=== PATIENT | female | born 1990 | race Caucasian/White ===

== ENCOUNTER 2016-11-06 17:59 | Emergency (ER) | payer MEDICAID ==
--- NOTE | 2016-11-06 21:13 | Emergency Department Report ---
ED Extremity Problem HPI - General Chief complaint: Extremity Injury, Lower Stated complaint: LEFT SIDE FOOT MUSCLE PAIN Time Seen by Provider: 11/06/16 21:10 Source: patient Mode of arrival: Ambulatory Limitations: No Limitations - History of Present Illness Initial comments: 26 y/o F presents with left lateral sided foot pain for the past 3 days. Pt states that she works for [employer] and works about 10 miles a day. Pt denies any medical hx of blood clots, chest pain, SOB, long travels, fever, or chills. Pt has been taking OTC mediations with no relief. pt states that the pain increases with movement and has no pain with no movement. Pt denies any trauma to the site. She reports to pain and swelling at the lateral aspect of the foot near the 5th metatarsal. Pt denies taking any other medications for any conditions at this time and is otherwise healthy. NKDA. [place] Complaint: extremity pain, extremity swelling -: days(s) (3) Location: left, lower extremity -: Yes arthralgia, No fever, No associated dyspnea, No associated chest pain Radiation: none Severity scale (0 -10): 8 Quality: sharp Consistency: intermittent Improves with: immobilization Worsens with: weight bearing, walking, exertion Associated Symptoms: myalgias, arthralgias. denies: chest pain, shortness of breath, fever, rash - Related Data Previous Rx's Medication Instructions Recorded Last Taken Type Acetaminophen [Acetaminophen ER 650 mg PO Q8HR PRN #25 tablet.er 08/29/15 Unknown Rx TAB] Cyclobenzaprine HCl [Flexeril 5 MG 5 mg PO TID PRN #15 tablet 11/06/16 Unknown Rx TAB] Ibuprofen [Motrin 800 MG tab] 800 mg PO Q8HR PRN #15 tablet 11/06/16 Unknown Rx Allergies Allergy/AdvReac Type Severity Reaction Status Date / Time No Known Allergies Allergy Verified 09/06/15 09:38 ED Review of Systems ROS: Stated complaint: LEFT SIDE FOOT MUSCLE PAIN Other details as noted in HPI Constitutional: denies: chills, fever Eyes: denies: eye pain, eye discharge, vision change ENT: denies: ear pain, throat pain Respiratory: denies: cough, shortness of breath, wheezing Cardiovascular: denies: chest pain, palpitations Endocrine: no symptoms reported Gastrointestinal: denies: abdominal pain, nausea, diarrhea Genitourinary: denies: urgency, dysuria, discharge Musculoskeletal: joint swelling, arthralgia, myalgia. denies: back pain Skin: denies: rash, lesions Neurological: denies: headache, weakness, paresthesias Psychiatric: denies: anxiety, depression Hematological/Lymphatic: denies: easy bleeding, easy bruising ED Past Medical Hx - Past Medical History Previous Medical History?: No Hx Hypertension: No Hx Heart Attack/AMI: No Hx Diabetes: No Hx Deep Vein Thrombosis: No Hx Pulmonary Embolism: No Hx Liver Disease: No Hx Renal Disease: No Hx Sickle Cell Disease: No Hx Headaches / Migraines: No Hx Seizures: No Hx Asthma: No Hx COPD: No Hx Tuberculosis: No Hx HIV: No - Surgical History Past Surgical History?: No - Social History Smoking Status: Never Smoker Substance Use Type: None - Medications Home Medications: Home Medications Medication Instructions Recorded Confirmed Last Taken Type Acetaminophen [Acetaminophen ER 650 mg PO Q8HR PRN #25 tablet.er 08/29/15 Unknown Rx TAB] Cyclobenzaprine HCl [Flexeril 5 MG 5 mg PO TID PRN #15 tablet 11/06/16 Unknown Rx TAB] Ibuprofen [Motrin 800 MG tab] 800 mg PO Q8HR PRN #15 tablet 11/06/16 Unknown Rx ED Physical Exam - General Limitations: No Limitations General appearance: alert, in no apparent distress - Head Head exam: Present: atraumatic, normocephalic - Eye Eye exam: Present: normal appearance - ENT ENT exam: Present: mucous membranes moist - Neck Neck exam: Present: normal inspection - Respiratory Respiratory exam: Present: normal lung sounds bilaterally. Absent: respiratory distress - Cardiovascular Cardiovascular Exam: Present: regular rate, normal rhythm. Absent: systolic murmur, diastolic murmur, rubs, gallop - GI/Abdominal GI/Abdominal exam: Present: soft, normal bowel sounds - Extremities Exam Extremities exam: Present: full ROM (increased pain with flexion and upon palpation of the lateral aspect of the L foot, full ROM of the joint, able to wriggle toes, pulses full, sensation intact, pt is hemodynamically and neurovascularly intact), tenderness (tenderness and mild swelling at the fifth metatarsal region, mild swelling), joint swelling. Absent: calf tenderness - Back Exam Back exam: Present: normal inspection - Neurological Exam Neurological exam: Present: alert, oriented X3 - Psychiatric Psychiatric exam: Present: normal affect, normal mood - Skin Skin exam: Present: warm, intact, normal color ED Course Vital Signs 11/06/16 11/06/16 11/06/16 18:48 20:58 23:34 Temperature 99.4 F 98.8 F 98.6 F Pulse Rate 76 72 73 Respiratory 20 18 16 Rate Blood Pressure 95/57 Blood Pressure 98/57 97/69 [Left] O2 Sat by Pulse 100 100 99 Oximetry ED Medical Decision Making - Medical Decision Making 26 y/o F presented with 5th metatarsal area pain, because of patient's high risk of stress fracture given the amount of walking she does I have conducted an Xray at this time- negative study. Pt denies any known injury to the site. I have offered her pain medications here at the ED, patient denied. I have given patient an chuckie wrap, flexeril, and ibuprofen PRN for the pain at home. Encouraged the RICE therapy. According to PERC criteria, pt was very low risk for DVT/clot, therefore, no vascualr studies were conducted- spoke with Dr. Buitrago about this case. Pt was discharged in stable condition here, no signs of resp distress, patient is alert and oriented at the ED. Critical care attestation.: If time is entered above; I have spent that time in minutes in the direct care of this critically ill patient, excluding procedure time. ED Disposition Clinical Impression: Muscle strain, Foot pain, left Disposition: DC-01 TO HOME OR SELFCARE Is pt being admited?: No Does the pt Need Aspirin: No Condition: Stable Instructions: Muscle Strain (ED), RICE Therapy (ED) Additional Instructions: Please take the medications given to you today as needed for the pain. Be aware that muscle relaxant may make you drowsy, take at night, do not drive or work with this medication. RICE= rest, ice, compress, and elevate the joint. Foot brace given to you today. Please follow-up with PCP 3-5 days, if progressing symptoms go to see the orthopedist. Any acute worsening such as: increased redness, swelling, numbness, tingling return to the ER. Prescriptions: Cyclobenzaprine HCl [Flexeril 5 MG TAB] 5 mg PO TID PRN #15 tablet PRN Reason: muscle relaxant Ibuprofen [Motrin 800 MG tab] 800 mg PO Q8HR PRN #15 tablet PRN Reason: Pain Referrals: [facility] [Outside] - 3-5 Days [facility] [Outside] - 3-5 Days PRIMARY CAREMD [Primary Care Provider] - 3-5 Days JARED WILKINS MD [Staff Physician] - 3-5 Days Forms: Work/School Release Form(ED)
--- NOTE | 2016-11-06 23:08 | XRay Report ---
FINAL REPORT PROCEDURE: XR FOOT 2V LT TECHNIQUE: Left foot, three views HISTORY: pain in foot COMPARISON: No prior studies are available for comparison. FINDINGS: No acute fracture or dislocation is seen. No focal osseous lesion is identified. No radiopaque foreign body is seen. IMPRESSION: No acute fracture or dislocation is identified
[2016-11-06 23:35] VITALS: BP 97/69
== END 2016-11-06 23:34 | disposition home or self-care (01) ==
LOC: ED 17:59
DX: S96.912A Strain of unspecified muscle and tendon at ankle and foot level, left foot, initial encounter (principal); X58.XXXA Exposure to other specified factors, initial encounter; Y93.89 Activity, other specified; Y99.9 Unspecified external cause status; Y92.89 Other specified places as the place of occurrence of the external cause

== ENCOUNTER 2018-10-05 11:24 | Emergency (ER) | payer OTHER ==
[2018-10-05 12:13] VITALS: BP 93/53
--- NOTE | 2018-10-05 12:15 | Event Note ---
ED Screening Note Date of service: 10/05/18 Time: 12:11 ED Screening Note: 28 y/o female comes in for abd pain and back pain. LMP 08/11/18 . No vaginal bleeding. Has no care. This initial assessment/diagnostic orders/clinical plan/treatment(s) is/are subject to change based on patients health status, clinical progression and re- assessment by fellow clinical providers in the ED. Further treatment and workup at subsequent clinical providers discretion. Patient/guardian urged not to elope from the ED as their condition may be serious if not clinically assessed and managed. Initial orders include:
[2018-10-05 12:48] LABS: Bilirubin,Urine NEG (Negative); Color,Urine Yellow (Yellow)
[2018-10-05 12:49] LABS: Blood,Urine NEG (Negative); Protein,Urine <15 mg/dL mg/dL (Negative); Urobilinogen,Urine < 2.0 mg/dL (<2.0); WBC,Urine < 1.0 /HPF (0.0-6.0)
--- NOTE | 2018-10-05 13:03 | Emergency Department Report ---
HPI - General Chief Complaint: Abdominal Pain Time Seen by Provider: 10/05/18 12:11 ED Past Medical Hx - Past Medical History Previous Medical History?: Yes Hx Hypertension: No Hx Heart Attack/AMI: No Hx Diabetes: No Hx Deep Vein Thrombosis: No Hx Pulmonary Embolism: No Hx Liver Disease: No Hx Renal Disease: No Hx Sickle Cell Disease: No Hx Headaches / Migraines: No Hx Seizures: No Hx Asthma: No Hx COPD: No Hx Tuberculosis: No Hx HIV: No Additional medical history: sickle cell trait - Surgical History Past Surgical History?: No - Social History Smoking Status: Never Smoker Substance Use Type: None - Medications Home Medications: Home Medications Medication Instructions Recorded Confirmed Last Taken Type Acetaminophen [Acetaminophen ER 650 mg PO Q8HR PRN #25 tablet.er 08/29/15 09/06/15 Unknown Rx TAB] Cyclobenzaprine HCl [Flexeril 5 MG 5 mg PO TID PRN #15 tablet 11/06/16 Unknown Rx TAB] Ibuprofen [Motrin 800 MG tab] 800 mg PO Q8HR PRN #15 tablet 11/06/16 Unknown Rx ED Review of Systems ROS: Stated complaint: 9 WKS /BLEEDING/PAIN Other details as noted in HPI Physical Exam - Physical Exam Vital Signs: Vital Signs 10/05/18 12:09 Temperature 97.8 F Pulse Rate 90 Respiratory 16 Rate Blood Pressure 93/53 O2 Sat by Pulse 100 Oximetry ED Course Vital Signs 10/05/18 12:09 Temperature 97.8 F Pulse Rate 90 Respiratory 16 Rate Blood Pressure 93/53 O2 Sat by Pulse 100 Oximetry Critical care attestation.: If time is entered above; I have spent that time in minutes in the direct care of this critically ill patient, excluding procedure time. ED Disposition Clinical Impression: Disposition: DC-01 TO HOME OR SELFCARE Is pt being admited?: No Does the pt Need Aspirin: No Condition: Stable Instructions: (ED) Additional Instructions: pelvic rest until seen by quoter continue vitamin no drugs/alcohol or cig tylenol for pain diet and activity as tolerated Referrals: ARABELLA SAINZ [Other] - 3-5 Days ADRIANA SHAIKH MD [Staff Physician] - 3-5 Days Time of Disposition: 14:00
--- NOTE | 2018-10-05 13:55 | Ultrasound Report ---
ULTRASOUND OB <=14 WEEKS FETUS ULTRASOUND OB TRANSVAGINAL HISTORY: Patient reports a 9 week with abdominal and back pain COMPARISON: None. TECHNIQUE: Routine transabdominal and transvaginal OB ultrasound performed. FINDINGS: Uterus: Mildly enlarged measuring 11.2 x 10.1 x 10.1 cm. Gestational Sac: Well-defined oval shape and intrauterine in location. Yolk Sac: Normal in appearance. Fetus/Embryo: [place]-rump length of 1.9 cm, corresponding to an estimated gestational age of 8 weeks 3 days. Embryonic/ anatomy is too small for evaluation. Embryonic/ cardiac activity: 178bpm Placenta: Too small for evaluation. Amniotic fluid volume: Subjectively appropriate for gestational age. Ovaries: The right ovary is normal in size and appearance with normal blood flow, measuring 2.7 x 0. 8 x 3.5 cm. The left ovary is normal in size and appearance with normal blood flow, measuring 4.2 x 2.3 x 2.7 cm. Hypoechoic space-occupying mass in the left ovary with peripheral vascularity is most likely the corpus luteum. Additional findings: None. IMPRESSION Early live intrauterine . No acute abnormality is appreciated. Signer Name: Emiliano Barragan Jr, MD Signed: 10/05/2018 1:51 PM Workstation Name: [id number]
== END 2018-10-05 14:10 | disposition home or self-care (01) ==
LOC: ED 11:24
DX: O26.891 Other specified pregnancy related conditions, first trimester (principal); O99.011 Anemia complicating pregnancy, first trimester; D57.3 Sickle-cell trait; Z3A.08 8 weeks gestation of pregnancy; Z79.899 Other long term (current) drug therapy
CPT/HCPCS: 36415; 76801; 76817; 81001; 84702

== ENCOUNTER 2018-10-15 07:21 | Emergency (ER) | payer OTHER ==
[2018-10-15 07:45] LABS: Basophils % (Auto) 0.4 % (0.0-1.8); Eosinophils # (Auto) 0.1 K/mm3 (0.0-0.4); Eosinophils % (Auto) 1.5 % (0.0-4.3); Hematocrit 33.3 % (30.3-42.9); Hemoglobin 11.3 gm/dl (10.1-14.3); Lymphocytes # (Auto) 1.8 K/mm3 (1.2-5.4); Lymphocytes % (Auto) 32.9 % (13.4-35.0); Mean Corpuscular HGB Conc 34 % (30-34); Mean Corpuscular Volume 84 fl (79-97); Monocytes # (Auto) 0.4 K/mm3 (0.0-0.8); Monocytes % (Auto) 6.8 % (0.0-7.3); Platelet Count 259 K/mm3 (140-440); Red Blood Count 3.98 M/mm3 (3.65-5.03); Red Cell Distribution Width 14.5 % (13.2-15.2)
[2018-10-15 07:56] LABS: Bilirubin,Urine NEG (Negative); Blood,Urine MOD (Negative); Color,Urine Yellow (Yellow); Protein,Urine <15 mg/dL mg/dL (Negative); Urobilinogen,Urine < 2.0 mg/dL (<2.0)
--- NOTE | 2018-10-15 08:54 | Emergency Department Report ---
ED Female HPI - General Chief complaint: Vaginal Bleeding Stated complaint: 10 WKS /BLEEDING/PAIN Time Seen by Provider: 10/15/18 08:04 Source: patient Mode of arrival: Ambulatory Limitations: No Limitations - History of Present Illness Initial comments: 28-year-old [place] female . This emergency department complaining of painless vaginal spotting which started this morning 5:20 PM she was seen here on October 05 had an ultrasound which showed a IUP of 8 weeks and 3 days. Heart rate of 178 with a Quant of 140,000. Complaint: other -: Gradual Radiation: non-radiating Severity: mild Quality: aching Consistency: constant Improves with: none Worsens with: none Are you Now?: No Associated Symptoms: vaginal bleeding. denies: abdominal pain, nausea/vomiting, fever/chills, headaches, rash, shortness of breath, syncope, weakness - Related Data Sexually active: No Previous Rx's Medication Instructions Recorded Last Taken Type Acetaminophen [Acetaminophen ER 650 mg PO Q8HR PRN #25 tablet.er 08/29/15 Unknown Rx TAB] Cyclobenzaprine HCl [Flexeril 5 MG 5 mg PO TID PRN #15 tablet 11/06/16 Unknown Rx TAB] Ibuprofen [Motrin 800 MG tab] 800 mg PO Q8HR PRN #15 tablet 11/06/16 Unknown Rx Allergies Allergy/AdvReac Type Severity Reaction Status Date / Time No Known Allergies Allergy Verified 09/06/15 09:38 ED Review of Systems ROS: Stated complaint: 10 WKS /BLEEDING/PAIN Other details as noted in HPI Comment: All other systems reviewed and negative ED Past Medical Hx - Past Medical History Previous Medical History?: Yes Hx Hypertension: No Hx Heart Attack/AMI: No Hx Diabetes: No Hx Deep Vein Thrombosis: No Hx Pulmonary Embolism: No Hx Liver Disease: No Hx Renal Disease: No Hx Sickle Cell Disease: No Hx Headaches / Migraines: No Hx Seizures: No Hx Asthma: No Hx COPD: No Hx Tuberculosis: No Hx HIV: No Additional medical history: sickle cell trait, miscarriage - Surgical History Past Surgical History?: No - Social History Smoking Status: Never Smoker Substance Use Type: None - Medications Home Medications: Home Medications Medication Instructions Recorded Confirmed Last Taken Type Acetaminophen [Acetaminophen ER 650 mg PO Q8HR PRN #25 tablet.er 08/29/15 09/06/15 Unknown Rx TAB] Cyclobenzaprine HCl [Flexeril 5 MG 5 mg PO TID PRN #15 tablet 11/06/16 Unknown Rx TAB] Ibuprofen [Motrin 800 MG tab] 800 mg PO Q8HR PRN #15 tablet 11/06/16 Unknown Rx ED Physical Exam - General Limitations: No Limitations General appearance: alert, in no apparent distress - Head Head exam: Present: atraumatic, normocephalic - Eye Eye exam: Present: normal appearance, PERRL, EOMI. Absent: scleral icterus, conjunctival injection, periorbital swelling, periorbital tenderness Pupils: Present: normal accommodation. Absent: unequal - ENT ENT exam: Present: mucous membranes moist. Absent: TM's normal bilaterally, normal external ear exam - Neck Neck exam: Present: normal inspection, full ROM. Absent: tenderness, meningismus, thyromegaly - Respiratory Respiratory exam: Present: normal lung sounds bilaterally. Absent: respiratory distress, wheezes, rales, chest wall tenderness, accessory muscle use - Cardiovascular Cardiovascular Exam: Present: regular rate, normal rhythm. Absent: systolic murmur, diastolic murmur, rubs, gallop - GI/Abdominal GI/Abdominal exam: Present: soft, normal bowel sounds - Extremities Exam Extremities exam: Present: normal inspection - Back Exam Back exam: Present: normal inspection - Neurological Exam Neurological exam: Present: alert, oriented X3 - Psychiatric Psychiatric exam: Present: normal affect, normal mood - Skin Skin exam: Present: warm, dry, intact, normal color. Absent: rash ED Course Vital Signs 10/15/18 07:24 Temperature 98.3 F Pulse Rate 91 H Blood Pressure 129/75 O2 Sat by Pulse 100 Oximetry ED Medical Decision Making - Lab Data Result diagrams: 10/15/18 07:34 - Radiology Data Radiology results: report reviewed (pelvic ultrasound comparison to 10/05/2018, did reveal early live intrauterine , no acute abnormalities detected. 9 weeks 5 days with cardiac activity 177 bpm.) - Medical Decision Making [id number] [place] female, first trimester of not yet seen her [facility]ER for her general care having some spotting Critical care attestation.: If time is entered above; I have spent that time in minutes in the direct care of this critically ill patient, excluding procedure time. ED Disposition Clinical Impression: Vaginal bleeding in Disposition: DC-01 TO HOME OR SELFCARE Is pt being admited?: No Does the pt Need Aspirin: No Condition: Stable Instructions: (ED), Threatened Miscarriage (ED) Additional Instructions: Please continue taking your vitamins and continue to hydrate as well as as we discussed incorporating the appropriate anti-nausea regimen as well and be sure to follow up with your [facility] for management Referrals: [facility] [Provider Group] - 3-5 Days
--- NOTE | 2018-10-15 10:38 | Ultrasound Report ---
ULTRASOUND OB LESS THAN EQUAL TO 14 WEEKS FETUS ULTRASOUND OB TRANSVAGINAL HISTORY: Vaginal bleeding during COMPARISON: 10/05/2018 TECHNIQUE: Routine transabdominal OB ultrasound performed. FINDINGS: Uterus: Mildly enlarged measuring 13.1 x 8.8 x 10.5 cm. Gestational Sac: Well-defined oval shape and intrauterine in location. Yolk Sac: Normal in appearance. Fetus/Embryo: [place]-rump length of 2.9 cm, corresponding to an estimated gestational age of 9 weeks 5 days. Embryonic/ anatomy is too small for evaluation. Embryonic/ cardiac activity: 177bpm Placenta: Too small for evaluation. Amniotic fluid volume: Subjectively appropriate for gestational age. Ovaries: The right ovary is normal in size and appearance with normal blood flow, measuring 2.2 x 1. 3 x 3.6 cm. The left ovary is normal in size and appearance with normal blood flow, measuring 3.5 x 1.9 x 3.0 cm. A 1.4 cm simple cyst in the left ovary is unchanged. Additional findings: None. IMPRESSION Early live intrauterine . No acute abnormality is detected. Signer Name: Emiliano Barragan Jr, MD Signed: 10/15/2018 10:34 AM Workstation Name: [id number]
[2018-10-15 11:34] VITALS: BP 93/61
== END 2018-10-15 12:01 | disposition home or self-care (01) ==
LOC: ED 07:21
DX: O20.9 Hemorrhage in early pregnancy, unspecified (principal); O26.851 Spotting complicating pregnancy, first trimester; Z3A.10 10 weeks gestation of pregnancy
CPT/HCPCS: 36415; 76801; 76817; 81001; 84702; 85025; 86900; 86901; 99284

== ENCOUNTER 2019-03-29 11:58 | Outpatient (CLI) | payer OTHER ==
[2019-03-29] MEDS ORDERED: metroNIDAZOLE 500 MG TAB PO ONE (12:20)
[2019-03-29] MEDS ORDERED: AMPICILLIN/NS 2 GM/100 ML 2 GM/100 ML BAG IV ONE (12:21)
[2019-03-29] MEDS ORDERED: LACTATED RINGERS 1,000 ML IV SCH (13:00)
[2019-03-29 14:03] LABS: Basophils % (Auto) 0.5 % (0.0-1.8); Eosinophils # (Auto) 0.2 K/mm3 (0.0-0.4); Eosinophils % (Auto) 3.4 % (0.0-4.3); Hematocrit 42.6 % (30.3-42.9); Hemoglobin 13.7 gm/dl (10.1-14.3); Lymphocytes # (Auto) 1.1 K/mm3 (1.2-5.4); Lymphocytes % (Auto) 19.4 % (13.4-35.0); Mean Corpuscular HGB Conc 32 % (30-34); Mean Corpuscular Volume 71 fl (79-97); Monocytes # (Auto) 0.3 K/mm3 (0.0-0.8); Monocytes % (Auto) 6.3 % (0.0-7.3); Platelet Count 128 K/mm3 (140-440); Red Cell Distribution Width 17.3 % (13.2-15.2)
[2019-03-29] MEDS ORDERED: MAGNESIUM SULFATE 4 GM/100 ML BAG IV ONE (14:13)
[2019-03-29] MEDS: BETAMET ACET/BETAMET NA PH 6 MG/ML INJ 5 ML MDV IM SCH (14:24)
[2019-03-29] MEDS: FERROUS SULFATE 325 MG TAB PO SCH (14:25)
--- NOTE | 2019-03-29 14:27 | History and Physical Report ---
History of Present Illness Date of examination: 03/29/19 History of present illness: PT with h/o 3 PTDs. PT is at 32.6 weeks today. PT seen in office and notes ctxs over the weekend and still having them today. The ctxs are uncomfortable when she has them. No VB. No LOF. She also notes decreased FM for around a w [place]. Pt notes that she was on Debbie but stopped @ 28 weeks due to a skin reaction to the shot. Pt was 3 cm dilated in the office today and CNM notes a cervical polyp on her exam. Past History Past Medical History: other (anemia) Past Surgical History: no surgical history - Obstetrical History Expected Date of Delivery: 05/18/19 Actual Gestation: 32 Week(s) 6 Day(s) : 7 Hx # Term Pregnancies: 2 Number of Pregnancies: 3 Spontaneous Abortions: 1 Number of Living Children: 5 Medications and Allergies Allergies Allergy/AdvReac Type Severity Reaction Status Date / Time No Known Allergies Allergy Verified 09/06/15 09:38 Home Medications Medication Instructions Recorded Confirmed Last Taken Type Acetaminophen [Acetaminophen ER 650 mg PO Q8HR PRN #25 tablet.er 08/29/15 09/06/15 Unknown Rx TAB] Cyclobenzaprine HCl [Flexeril 5 MG 5 mg PO TID PRN #15 tablet 11/06/16 Unknown Rx TAB] Ibuprofen [Motrin 800 MG tab] 800 mg PO Q8HR PRN #15 tablet 11/06/16 Unknown Rx Active Meds: Active Medications Betamethasone Acet/Betameth SodPhos (Celestone Soluspan) 12 mg IM Q24HR KISHA Ferrous Sulfate (Feosol) 325 mg PO TID KISHA Lactated Ringer's (Lactated Ringers) 1,000 mls @ 125 mls/hr IV DIRECT KISHA Ampicillin Sodium (Ampicillin/Ns 1 Gm/50 Ml) 1 gm in 50 mls @ 100 mls/hr IV Q4HR KISHA; Protocol Magnesium Sulfate (Magnesium Sulfate 40gm/1000ml) 40 gm in 1,000 mls @ 50 mls/hr IV DIRECT KISHA Magnesium Sulfate (Magnesium Sulfate 4gm/100ml) 4 gm in 100 mls @ 300 mls/hr IV ONCE ONE Stop: 03/29/19 14:32 Multivitamins/Iron/Calcium ( Vitamin) 1 each PO QDAY KISHA Review of Systems All systems: negative (except HPI) - Physical Exam Abdomen: Positive: normal appearance (No acute distress but is visibly breathing through her contractions.), soft. Negative: tenderness - Obstetrical FHR: category 1 Uterine Contraction Frequency (min): around q 5-7 min Results Result Diagrams: 03/29/19 13:26 Abnormal lab results 03/29/19 Range/Units 13:26 RBC 6.00 H (3.65-5.03) M/mm3 MCV 71 L (79-97) fl MCH 23 L (28-32) pg RDW 17.3 H (13.2-15.2) % Plt Count 128 L (140-440) K/mm3 Lymph # 1.1 L (1.2-5.4) K/mm3 Seg Neutrophils % 70.4 H (40.0-70.0) % All other labs normal. Assessment and Plan - Patient Problems (1) Premature cervical dilation in third trimester Current Visit: Yes Status: Acute Plan to address problem: Will check BPP for her decreased FM. Start IVF and Betamethasone. Also start MgSO4 for 24 hrs. FFN also ordered. Check GBS status. Case d/w pt and she agrees with plan. All questions answered.
[2019-03-29] MEDS: PRENATAL VIT27-FE FUMARATE-FOLIC ACID VIT TAB PO SCH (14:35)
[2019-03-29] MEDS ORDERED: MAGNESIUM SULFATE 40GM/1000ML 40 GM/1,000 ML BAG IV SCH (15:00)
[2019-03-29] MEDS ORDERED: AMPICILLIN/NS 1 GM/50 ML 1 GM/50 ML BAG IV SCH (16:00)
--- NOTE | 2019-03-29 16:20 | Ultrasound Report ---
Limited OB Ultrasound Biophysical profile HISTORY: well-being. TECHNIQUE: Grayscale and color Doppler imaging performed. COMPARISON: OB ultrasound from 10/15/2018 FINDINGS: There is a single viable intrauterine gestation with cephalic presentation and MIQUEL of 13 cm which is normal. Placenta is positioned along the fundal aspect of the uterus. Cervical length is 3. 7 cm. Heart rate is 153 bpm. Overall EGA is 32 weeks and 0 days by ultrasound which closely correlates with the clinical age of 32 weeks and 6 days. Estimated delivery date is 05/24/2019. weight is 1905 g. Limited anatomic jigar vey beyond the neuroanatomy (which was not well-seen) is unremarkable. IMPRESSION: Single viable intrauterine gestation as above. Signer Name: Horacio Can MD Signed: 03/29/2019 4:16 PM Workstation Name: [id number]
[2019-03-29] MEDS ORDERED: TERBUTALINE 1 MG/1 ML INJ SUB-Q ONE (16:39)
[2019-03-29] MEDS ORDERED: TERBUTALINE 1 MG/1 ML INJ ONE (16:40)
[2019-03-29] MEDS: AMPICILLIN/NS 1 GM/50 ML 1 GM/50 ML BAG IV SCH ×2 (18:27→23:00)
[2019-03-30] MEDS: AMPICILLIN/NS 1 GM/50 ML 1 GM/50 ML BAG IV SCH (02:55)
[2019-03-30] MEDS: FERROUS SULFATE 325 MG TAB PO SCH ×2 (09:14→14:32)
[2019-03-30] MEDS: PRENATAL VIT27-FE FUMARATE-FOLIC ACID VIT TAB PO SCH (09:40)
[2019-03-30] MEDS ORDERED: BETAMET ACET/BETAMET NA PH 6 MG/ML INJ 5 ML MDV IM ONE (10:00)
[2019-03-30] MEDS: BETAMET ACET/BETAMET NA PH 6 MG/ML INJ 5 ML MDV IM SCH (14:29)
--- NOTE | 2019-03-30 17:12 | Progress Note ---
Assessment and Plan - Patient Problems (1) Premature cervical dilation in third trimester Current Visit: Yes Status: Acute Plan to address problem: Pt got betamethsone #2 this afternoon. Although her ctxs have spaced out and FFN is negative, will observe until tomorrow in light of her PTD hx, her advance cervical dilation and her grand multiparity. MgSO4 is off and pt switched to prn Nifedipine. If pt is doing well with this regimen, can consider sending pt home tomorrow with the same Nifedipine. Abx stopped but pt aware that if she goes into labor, she will need it again. GBS cx is pending. Subjective - Subjective Date of service: 03/30/19 (Late entry- PT seen this morning around 9am) Interval history: PT's exam in the office early yesterday was 3 cm by CNM. In the late afternoon yesterday, pt had ctxs upto q 2 min and RN noted she was 4-5 cm. Terb x 1 given along with the Mag that she is on. Ctxs soon after quieted down and pt no long er with regular ctxs. FFN was negative yesterday as well. No VB or LOF. No other complaints except she does not like the Ampicillin. She feels uncomfortable while receiving it (no CP/SOB) and feels better after the tx is completed. Objective - Vital Signs Vital Signs: Vital Signs - 12hr 03/30/19 03/30/19 03/30/19 05:11 05:16 05:21 Temperature Pulse Rate 99 H 87 91 H Respiratory Rate Blood Pressure O2 Sat by Pulse 99 99 98 Oximetry 03/30/19 03/30/19 03/30/19 05:26 05:31 05:36 Temperature Pulse Rate 94 H 96 H 94 H Respiratory Rate Blood Pressure O2 Sat by Pulse 100 98 100 Oximetry 03/30/19 03/30/19 03/30/19 05:41 05:46 05:51 Temperature Pulse Rate 90 87 98 H Respiratory Rate Blood Pressure O2 Sat by Pulse 98 98 99 Oximetry 03/30/19 03/30/19 03/30/19 05:52 05:59 06:04 Temperature Pulse Rate 90 74 96 H Respiratory Rate Blood Pressure 78/45 O2 Sat by Pulse 98 100 Oximetry 03/30/19 03/30/19 03/30/19 06:09 06:14 06:15 Temperature Pulse Rate 102 H 99 H 86 Respiratory Rate Blood Pressure 100/59 O2 Sat by Pulse 100 99 Oximetry 03/30/19 03/30/19 03/30/19 06:19 06:24 06:29 Temperature Pulse Rate 100 H 91 H 100 H Respiratory Rate Blood Pressure O2 Sat by Pulse 99 100 100 Oximetry 03/30/19 03/30/19 03/30/19 06:43 06:48 06:53 Temperature Pulse Rate 100 H 92 H 101 H Respiratory Rate Blood Pressure O2 Sat by Pulse 96 100 99 Oximetry 03/30/19 03/30/19 03/30/19 06:58 07:03 07:08 Temperature Pulse Rate 94 H 113 H 86 Respiratory Rate Blood Pressure O2 Sat by Pulse 99 100 100 Oximetry 03/30/19 03/30/19 03/30/19 07:13 07:27 07:32 Temperature Pulse Rate 98 H 121 H 103 H Respiratory Rate Blood Pressure O2 Sat by Pulse 99 98 99 Oximetry 03/30/19 03/30/19 03/30/19 07:37 07:42 07:47 Temperature Pulse Rate 94 H 84 86 Respiratory Rate Blood Pressure O2 Sat by Pulse 98 99 99 Oximetry 03/30/19 03/30/19 03/30/19 07:52 07:57 08:00 Temperature 97.4 F L Pulse Rate 86 116 H Respiratory 19 Rate Blood Pressure O2 Sat by Pulse 99 99 Oximetry 03/30/19 03/30/19 03/30/19 08:02 08:06 10:07 Temperature Pulse Rate 98 H 102 H 115 H Respiratory Rate Blood Pressure 89/53 99/60 O2 Sat by Pulse 99 Oximetry 03/30/19 03/30/19 03/30/19 11:06 12:02 12:06 Temperature 97.6 F Pulse Rate 104 H 99 H Respiratory 16 Rate Blood Pressure 93/53 101/58 O2 Sat by Pulse Oximetry 03/30/19 03/30/19 03/30/19 14:51 14:53 14:56 Temperature Pulse Rate 104 H 99 H 114 H Respiratory Rate Blood Pressure 91/59 O2 Sat by Pulse 100 100 Oximetry 03/30/19 03/30/19 03/30/19 15:01 15:06 15:11 Temperature Pulse Rate 103 H 97 H 97 H Respiratory Rate Blood Pressure O2 Sat by Pulse 100 100 100 Oximetry 01/03/30/19 03/30/19 15:16 15:21 15:23 Temperature Pulse Rate 95 H 115 H Respiratory Rate Blood Pressure O2 Sat by Pulse 100 100 91 Oximetry 03/30/19 03/30/19 03/30/19 15:26 15:31 15:36 Temperature Pulse Rate 111 H 101 H 99 H Respiratory Rate Blood Pressure O2 Sat by Pulse 92 100 100 Oximetry 03/30/19 03/30/19 03/30/19 15:41 15:46 15:51 Temperature Pulse Rate 95 H 112 H 94 H Respiratory Rate Blood Pressure O2 Sat by Pulse 100 100 98 Oximetry 03/30/19 03/30/19 03/30/19 15:56 16:01 16:06 Temperature Pulse Rate 106 H 104 H 94 H Respiratory Rate Blood Pressure O2 Sat by Pulse 99 98 99 Oximetry 03/30/19 03/30/19 03/30/19 16:11 16:16 16:21 Temperature Pulse Rate 88 90 98 H Respiratory Rate Blood Pressure O2 Sat by Pulse 98 97 97 Oximetry 03/30/19 03/30/19 03/30/19 16:26 16:34 16:40 Temperature Pulse Rate 91 H 154 H Respiratory Rate Blood Pressure O2 Sat by Pulse 97 99 91 Oximetry 03/30/19 03/30/19 03/30/19 16:43 16:45 16:46 Temperature 98.1 F Pulse Rate 111 H Respiratory 17 Rate Blood Pressure 101/53 O2 Sat by Pulse 90 97 Oximetry - Exam Abdomen: Present: soft. Absent: tenderness FHR: category 1 - Labs Labs: Abnormal Labs 03/29/19 03/29/19 03/30/19 13:26 18:29 00:23 RBC 6.00 H MCV 71 L MCH 23 L RDW 17.3 H Plt Count 128 L Lymph # 1.1 L Seg Neutrophils % 70.4 H Magnesium 4.40 H 5.50 H 03/30/19 03/30/19 06:59 12:04 RBC MCV MCH RDW Plt Count Lymph # Seg Neutrophils % Magnesium 6.20 H 6.50 H Laboratory Results - last 24 hr 03/29/19 03/30/19 03/30/19 18:29 00:23 06:59 Magnesium 4.40 H 5.50 H 6.20 H 03/30/19 12:04 Magnesium 6.50 H
[2019-03-30] MEDS ORDERED: NIFEdipine*For Tocolysis only* 10 MG CAPSULE PO PRN (17:13)
[2019-03-31] MEDS: FERROUS SULFATE 325 MG TAB PO SCH ×2 (08:36→08:37)
[2019-03-31] MEDS: PRENATAL VIT27-FE FUMARATE-FOLIC ACID VIT TAB PO SCH (10:03)
[2019-03-31 12:03] VITALS: BP 92/55
--- NOTE | 2019-03-31 13:00 | Progress Note ---
Subjective - Subjective Date of service: 03/31/19 Interval history: patient comfortable no complaints S/P steroids x2, last dose given no contractions cervix 3-4cm/25% effaced/0 station FHT category 1 plan for d/c to home with PTL precautions FUP lifecycle one week [place] Objective - Vital Signs Vital Signs: Vital Signs - 12hr 03/31/19 03/31/19 03/31/19 01:21 02:06 06:06 Temperature Pulse Rate 88 86 83 Respiratory Rate Blood Pressure 90/55 90/56 98/54 03/31/19 03/31/19 03/31/19 07:08 07:35 12:01 Temperature 98.1 F Pulse Rate 74 83 90 Respiratory 18 Rate Blood Pressure 80/51 90/54 92/55 - Labs Labs: Abnormal Labs 03/29/19 03/29/19 03/30/19 13:26 18:29 00:23 RBC 6.00 H MCV 71 L MCH 23 L RDW 17.3 H Plt Count 128 L Lymph # 1.1 L Seg Neutrophils % 70.4 H Magnesium 4.40 H 5.50 H 03/30/19 03/30/19 06:59 12:04 RBC MCV MCH RDW Plt Count Lymph # Seg Neutrophils % Magnesium 6.20 H 6.50 H
== END 2019-03-31 13:35 | disposition home or self-care (01) ==
LOC: TRG 11:58 → LD 12:01 → TRG 03-31 13:35
PROVIDERS: ATTEND Obstetrics & Gynecology
DX: O47.03 False labor before 37 completed weeks of gestation, third trimester (principal); Z3A.37 37 weeks gestation of pregnancy
CPT/HCPCS: 36415; 76805; 76819; 82731; 83735; 85025; 86850; 86900; 86901; 87116; 96365; 96366; 96367; 96368; 96372; J0290; J0702; J3105; J3475; J7120